=== PATIENT | female | born 1950 | race Caucasian/White ===

== ENCOUNTER 2016-10-06 13:00 | Inpatient (IN) | payer MEDICARE, OTHER ==
[~2016-10-06] VITALS: Ht 167.6 cm; Wt 74.8 kg
--- NOTE | 2016-11-02 14:02 | PREOPHP ---
DATE OF ADMISSION: 11/03/2016 The staff physician who is doing surgery is Estefania Cordero M.D. DATE OF ADMISSION: 11/03/2016, at [facility]. DICTATING PHYSICIAN: Dr. Josemanuel Lancaster. PATIENT IDENTIFICATION: This is a 66-year-old woman being admitted for an open sciatic neurolysis, trochanteric bursitis, abductor repair, left hip, by Dr. Cordero. HISTORY OF PRESENT ILLNESS: The patient had a left total hip replacement on 05/[address] Andrea Jackson at [facility] in [place]. She developed left hip pain postoperatively and this has persisted and has caused a fair amount of disability and difficulty walking. She has seen multiple doctors in order to arrive at a diagnosis and treatment, and after much consideration and seeing Dr. Cordero, has decided on the above-named procedure. The details of the workup for this and scan findings are outlined by Dr. Cordero, but essentially it is felt that she has an abductor tear that needs repair. REVIEW OF SYSTEMS: The patient had a significant febrile illness with cough in late August and actually ended up being hospitalized at [facility] from 09/17/2016 to 09/19/2016 and actually tested positive for influenza B. That caused postponement of this surgery initially and she has now recovered from this. She has also developed neck pain and saw her doctor,, who did an MRI and said she was okay to have this surgery. She denies chest pains, palpitations or shortness of breath, denies change in bowel habits or abdominal pain. Denies new urinary symptoms, although has frequent UTIs and had one on her preoperative exam and was given Macrobid. She occasionally has panic attacks and takes 1 mg of Xanax. PAST MEDICAL HISTORY: 1. Coronary artery disease, status post CABG in 2000. The patient sees Dr. Sergio Choudhary regularly. She had a Rubidium PET stress test in 04/2016, that was negative. Dr. Choudhary is aware that she is having this surgery and said she is okay to proceed. As noted above, she does not have angina or CHF. 2. Hypertension. 3. History of lupus, now quiescent. 4. History of JRA at age 8. 5. Gastroesophageal reflux disease. 6. Premature ventricular contractions. 7. Bronchiectasis. 8. Depression, treated. 9. Osteoporosis. 10. Hypothyroidism, treated. 11. History of recurrent UTIs. 12. Breast biopsy 05/2015. 13. Benign positional vertigo. 14. In January of 2016 the patient was found to have a left rib 9 fracture with associated T9 costovertebral junction fracture. This caused significant pain and actually she still has some pain from this. PAST SURGICAL HISTORY: Right shoulder surgery in July of 2015, and the patient continues to have problems with her right shoulder and may need a right shoulder replacement, gastric bypass surgery in 2011, right hip replacement in 2010, right knee replacement in 2009, left hip replacement 10/29/2015, vertebroplasty at L1 in 2007, breast reduction in 2006, left hand surgery for a fractured hook of hamate in 2006, laparoscopic band in 2005, right great toe fusion in 2005, ruptured posterior tibial tendon in 2003, removal of ovaries in 2000, CABG in 2000, cervical diskectomy and fusion at C5, C6 in 1998, left TMJ arthrotomy in 1992, cataract surgery in 2016. CURRENT MEDICATIONS: 1. [place] thyroid 60. 2. Amlodipine 10 mg. 3. Crestor 20 mg. 4. Cymbalta 20 mg every other day. 5. She is off her aspirin. ALLERGIES: SHE IS ALLERGIC TO: 1. PENICILLIN, 2. CIPRO. 3. SULFA. 4. LISINOPRIL CAUSED A COUGH. CIGARETTES: None. ALCOHOL: Three-quarters of a bottle of wine at night. FAMILY HISTORY: Negative for bleeding disorder or difficulty with anesthesia. PHYSICAL EXAMINATION: VITAL SIGNS: Weight 167, blood pressure 120/70, pulse 68, temperature 98.2. HEENT: Nonicteric. Mouth and throat clear. NECK: Supple. CHEST: Clear. CARDIOVASCULAR: Regular rate and rhythm. ABDOMEN: Soft, nontender. EXTREMITIES: No edema. NEUROLOGIC: Nonfocal. EKG 10/26/2016, sinus rhythm, nonspecific T-wave abnormality, no significant change from old tracings. Chest x-ray 09/02/2016, no active disease in the chest. LAB DATA: 10/26/2016: White count 9.6, hematocrit 46, platelet count 317,000, chemistry is normal including creatinine 0.77. PT, PTT normal. Urinalysis, 20 to 50 white cells. Urine culture is pending. ASSESSMENT AND PLAN: This is a 66-year-old woman being admitted for surgical repair of the left abductor muscle by Dr. Cordero. She had the following medical problems: 1. Coronary artery disease, status post coronary artery bypass graft in 2000. 2. Hypertension. 3. History of lupus, now quiescent. 4. History of juvenile rheumatoid arthritis at age 8. 5. Gastroesophageal reflux disease. 6. Premature ventricular contractions. 7. Bronchiectasis. 8. Depression, treated. 9. Osteoporosis. 10. Hypothyroidism, treated. 11. History of recurrent urinary tract infections. 12. Breast biopsy in May 2015. 13. Benign positional vertigo. 14. History of cervical spine surgery in 1998. 15. Status post left thoracic 9 costovertebral junction and rib fracture in 2015. I should have mentioned above that during her hospitalization at [facility] on 09/17/2016, the patient had a chest CT scan that showed no acute cardiopulmonary process, and while she has the history of bronchiectasis, this was not mentioned on the report on the chest CT scan. There was no acute cardiopulmonary process noted. RECOMMENDATIONS: 1. The patient is medically cleared for the planned procedure. 2. Xanax for postop anxiety. 3. I am not on staff at [facility], and please arrange for appropriate internal medicine coverage for the patient while she is in the hospital. Please do not hesitate to call me if there are any questions. My phone number is [phone]. 4. As mentioned above, the patient has asymptomatic bacteriuria and was placed on Macrobid on 10/27/2016 for 5 days and she also is being prescribed Keflex preoperatively by Dr. Cordero. JOSEMANUEL LANCASTER MD DICATING PRE-OPERATIVE HISTORY AND PHYSICIAL FOR ESTEFANIA MOSLEY MD. Dictated By: ESTEFANIA CORDERO MD CG/NTS Conf#: [id number] DID#: [id number] MTDD
[2016-11-03] VITALS (16 sets, daily range): BP systolic 120–151; BP diastolic 60–77; PULSE 50–66; RESP 13–20; Ht 167.6 cm; Wt 74.8 kg
--- NOTE | 2016-11-03 06:44 | HPN ---
Date/Time of Note Date/Time of Note DATE: 11/03/16 TIME: 06:44 Interval H&P Admission Note Pt. seen H&P reviewed: No system changes ESTEFANIA MABRY MD November 03, 2016 06:44
[2016-11-03] MEDS ORDERED: GLYCOPYRROLATE 1 MG INJ ONE (07:00)
[2016-11-03] MEDS ORDERED: LIDOCAINE 2% (SDV) 5 ML INJ ONE (07:00)
[2016-11-03] MEDS ORDERED: ROSU20TA PO (10:51)
[2016-11-03] MEDS ORDERED: THYR60TA PO (10:51)
[2016-11-03] MEDS ORDERED: AMLO-147 PO (10:52)
[2016-11-03] MEDS ORDERED: GABAPENTIN 300 MG CAP PO ONE (14:00)
[2016-11-03] MEDS ORDERED: CEFAZOLIN 2 GM/50 ML (PMX) 50 ML IVPB ONE (14:00)
[2016-11-03] MEDS ORDERED: traMADol 50 MG TAB PO ONE (14:00)
[2016-11-03] MEDS ORDERED: BUPIVACAINE 0.5% (SDV) 30 ML, morphine SULFATE (PF) 8 MG, EPINEPHrine 0.3 MG, KETOROLAC... IRR SCH ×7 (14:00)
[2016-11-03] MEDS ORDERED: DEXAMETHASONE 1 MG TAB PO ONE (14:00)
[2016-11-03] MEDS ORDERED: TRANEXAMIC ACID 1,000 MG in SOD CHLORIDE 0.9% 100 ML IVPB ONE (14:00)
[2016-11-03] MEDS ORDERED: VANCOMYCIN 1 GM in NS 250 ML IVPB SCH (14:00)
[2016-11-03] MEDS ORDERED: POLYMYXIN/BACITRACIN 1L IRRIG ONE (14:16)
[2016-11-03] MEDS ORDERED: THROMBIN 5000 UNIT VIAL ONE (14:17)
[2016-11-03] MEDS ORDERED: CA CHLORIDE 10% 10 ML SYRINGE ONE ×2 (14:21→14:22)
[2016-11-03] MEDS ORDERED: PROPOFOL 20 ML ONE (14:31)
[2016-11-03] MEDS ORDERED: MIDAZOLAM 1 MG/ML 2 ML INJ ONE (14:31)
[2016-11-03] MEDS ORDERED: ONDANSETRON 4 MG INJ ONE (14:31)
[2016-11-03] MEDS ORDERED: FENTAnyl 50 MCG/ML VIAL ONE ×2 (14:31→14:56)
[2016-11-03] MEDS ORDERED: CEFAZOLIN 1 GM INJ ONE (14:31)
[2016-11-03] MEDS ORDERED: DEXAMETHASONE 4 MG/ML 1 ML INJ ONE (14:31)
[2016-11-03] MEDS ORDERED: ROCURONIUM 50 MG INJ ONE (14:31)
[2016-11-03] MEDS ORDERED: NEOSTIGMINE 3 MG/3 ML SYRINGE ONE (14:31)
[2016-11-03] MEDS ORDERED: ONDANSETRON 4 MG INJ IV PRN ×2 (15:30→16:00)
[2016-11-03] MEDS ORDERED: DIPHENHYDRAMINE 50 MG INJ IV PRN ×2 (15:30→16:00)
[2016-11-03] MEDS ORDERED: TRIMETHOBENZAMIDE 100 MG/ML VIAL IM PRN (15:30)
[2016-11-03] MEDS ORDERED: MEPERIDINE 25 MG INJ IV PRN (15:30)
[2016-11-03] MEDS ORDERED: HYDROmorphONE (0.2 MG/ML) 10ML SYG IV PRN ×3 (15:30)
[2016-11-03] MEDS ORDERED: MIDAZOLAM 1 MG/ML 2 ML INJ IV PRN (15:30)
[2016-11-03] MEDS ORDERED: LABETALOL HCL 20MG INJ IV PRN (15:30)
[2016-11-03] MEDS ORDERED: hydrALAzine 20 MG INJ IV PRN (15:30)
[2016-11-03] MEDS ORDERED: FENTAnyl 50 MCG/ML VIAL IV PRN ×3 (15:30)
--- NOTE | 2016-11-03 15:54 | OPR ---
DATE OF OPERATION: 11/03/2016 SURGEON: Estefania Cordero MD SPRINKLING SYSTEM IRRIGATOR: KONRAD VILA PA-C. PREOPERATIVE DIAGNOSIS: Left abductor tendon tear. POSTOPERATIVE DIAGNOSES 1. Left abductor tendon tear. 2. Left chronic trochanteric bursitis. OPERATION PERFORMED 1. Left open abductor repair. 2. Left open trochanteric bursectomy. Application Trainer surgeon, Konrad Boswell was present at my request as a result of the complexity associated with this procedure, including positioning of the extremity, manipulation and protection of the neurovascular structures. In my opinion, the assistance offered by a surgical manager is insufficient and Mr. Boswell should be compensated for his time. PROCEDURE IN DETAIL: Following administration of general endotracheal anesthesia, the patient was placed in the right lateral decubitus position and the left lower extremity was then prepped and draped in usual sterile fashion. A lateral incision was made over the palpable prominence of the greater trochanter. The incision was carried through the IT band and the IT band was incised. Severe bursal reactive tissue was then noted. A complete bursectomy was then performed. The abductor tendon was then incised and the undersurface was completely detached. This included the gluteus medius as well as the minimus. The area was then decorticated and debrided down to bleeding cortical cancellous base. The devitalized tissue was then debrided. Two 5.5 mm triple loaded anchors were then placed into the trochanter. These were all used for passing the sutures through the abductor disruption. Sutures were tied. A watertight closure of the abductor was then completed. The sciatic nerve was identified and noted to have no scarring or impingement. The joint was irrigated, closed in layers. A Prenio dressing was then applied. The patient was then placed supine, extubated, awakened and transported to recovery in stable condition, having tolerated the procedure well. ESTIMATED BLOOD LOSS: 20 mL. Dictated By: ESTEFANIA MEDLEY/JUVENAL Conf#: [id number] DID#: [id number] MTDD
[2016-11-03] MEDS ORDERED: TRANEXAMIC ACID 1,000 MG in SOD CHLORIDE 0.9% 100 ML IV ONE (16:00)
[2016-11-03] MEDS ORDERED: ACETAMINOPHEN/CODEINE 5 ML CUP PO PRN (16:00)
[2016-11-03] MEDS ORDERED: KETOROLAC 15 MG INJ IV PRN (16:00)
[2016-11-03] MEDS ORDERED: OXYCODONE/ACETAMINOPHEN (5/325) TAB PO PRN ×2 (16:00)
[2016-11-03] MEDS ORDERED: ZOLPIDEM 5 MG TAB PO PRN (16:00)
[2016-11-03] MEDS ORDERED: MAGNESIUM HYDROXIDE 30ML CUP PO PRN (16:00)
[2016-11-03] MEDS ORDERED: ACETAMINOPHEN 500 MG TAB PO PRN (16:00)
[2016-11-03] MEDS: morphine 2 MG INJ IV PRN ×2 (18:30→21:42)
[2016-11-03] MEDS: CEFAZOLIN 1 GM/50 ML (PMX) 50 ML IVPB SCH (18:30)
[2016-11-03] MEDS: LACTATED RINGER'S 1,000 ML IV SCH (18:44)
[2016-11-03] MEDS ORDERED: ATORVASTATIN 80 MG TAB PO SCH (21:00)
[2016-11-03] MEDS: SENNA/DOCUSATE NA (8.6MG/50MG) TAB PO SCH (21:00)
[2016-11-04] MEDS: CEFAZOLIN 1 GM/50 ML (PMX) 50 ML IVPB SCH ×2 (00:43→08:00)
[2016-11-04] MEDS: LACTATED RINGER'S 1,000 ML IV SCH ×2 (00:51→11:35)
[2016-11-04 00:59] VITALS: BP 156/74; PULSE 53; RESP 17
[2016-11-04] MEDS: morphine 4 MG/ML VIAL IV PRN ×2 (03:50→07:46)
[2016-11-04 04:01] VITALS: BP 151/71; PULSE 50; RESP 17
[2016-11-04 04:45] VITALS: BP 139/65; PULSE 54; RESP 17
[2016-11-04 08:20] VITALS: BP 131/63; RESP 18
--- NOTE | 2016-11-04 08:37 | PN ---
Date/Time of Note Date/Time of Note DATE: 11/04/16 TIME: 08:29 Assessment/Plan VTE Prophylaxis VTE Prophylaxis Intervention: ambulation Lines/Catheters IV Catheter Type (from Nrsg): Peripheral IV Central line still needed: No Urinary Cath still in place: No Assessment/Plan Chief Complaint/Hosp Course Left hip abductor repair, open neurolysis, troch bursectomy 11/03/16 Problems: Assessment/Plan POD 1, pain well controlled, but did have bradycardia overnight 1. Bradycardia-consult internal medicine 2. Foot flat weightbearing LLE, no twisting 3. Pain control on oral pain medication 4. PT/OT 5. Home when bradycardia resolves and cleared by medicine. Subjective 24 Hr Interval Summary Free Text/Dictation Bradycardic overnight, but asymptomatic. No lightheadedness, or dizziness. No CP/SOB. Pain is well controlled. Constitutional: no complaints Respiratory: no complaints Cardiovascular: no complaints Exam/Review of Systems Vital Signs Vitals Vital Signs Date Time Temp Pulse Resp B/P Pulse Ox O2 Delivery O2 Flow Rate FiO2 11/04/16 08:20 97.8 44 18 131/63 100 11/04/16 04:45 Nasal Cannula Intake and Output 11/03/16 11/03/16 11/04/16 15:00 23:00 07:00 Intake Total 1100 ml 1640 ml Output Total 16 ml 800 ml Balance 1084 ml 840 ml Exam LLE: incision clean and dry toes warm and well perfused has full sensation in the lower extremity able to dorsiflex and plantarflex with full strength Constitutional: alert, oriented Psych: no complaints Respiratory: normal air movement Cardiovascular: other (bradycardic in the 40s) Medications Medications Current Medications Amlodipine Besylate (Norvasc) 10 mg DAILY PO ; Start 11/04/16 at 09:00 Thyroid ([place] Thyroid) 60 mg DAILY PO ; Start 11/04/16 at 09:00 Atorvastatin Calcium 80 mg 80 mg DAILY@21 PO ; Start 11/03/16 at 21:00 Cefazolin Sodium (Ancef 1 Gm/50 ml (Pmx)) 50 ml @ 100 mls/hr Q8H IVPB Last administered on 11/04/16t 00:43; Admin Dose 100 MLS/HR; Start 11/03/16 at 16:00 ; Stop 11/04/16 at 08:29 Senna/Docusate Sodium (Senokot-S) 1 tab BID PO ; Start 11/03/16 at 21:00 Simethicone (Mylicon) 80 mg TID PRN PO DISTENSION/GAS/BLOATING; Start 11/03/16 at 16:00 Magnesium Hydroxide (Milk Of Mag) 30 ml BID PRN PO CONSTIPATION; Start at 16:00 Acetaminophen (Tylenol Tab) 1,000 mg Q4H PRN PO TEMP GREATER THAN 100.4F; Start 11/03/16 at 16:00 Oxycodone/ Acetaminophen (Percocet (5/ 325)) 1 tab Q4H PRN PO PAIN LEVEL 1-5; Start 11/03/16 at 16:00 Oxycodone/ Acetaminophen (Percocet (5/ 325)) 2 tab Q4H PRN PO PAIN LEVEL 6-10; Start 11/03/16 at 16:00 Morphine Sulfate (morphine) 2 mg Q2H PRN IV PAIN LEVEL 1-5 Last administered on 11/03/16 21:42; Admin Dose 2 MG; Start 11/03/16 at 16:00 Morphine Sulfate (morphine) 4 mg Q4H PRN IV PAIN LEVEL 6-10 Last administered on 11/04/16 07:46; Admin Dose 4 MG; Start 11/03/16 at 16:00 Ketorolac Tromethamine (Toradol) 15 mg Q6H PRN IV PAIN; Start 11/03/16 at 16:00 ; Stop 11/06/16 at 15:59 Ondansetron HCl (Zofran Inj) 4 mg Q6H PRN IV NAUSEA AND/OR VOMITING; Start at 16:00 Diphenhydramine HCl (Benadryl) 25 mg Q6H PRN IV PRURITUS; Start 11/03/16 at 16: 00 Aspirin 81 mg 81 mg DAILY PO ; Start 11/04/16 at 09:00 Lactated Ringer's (Lr) 1,000 ml @ 100 mls/hr Q10H IV Last administered on 11/04 00:51; Admin Dose 100 MLS/HR; Start 11/03/16 at 15:35 Acetaminophen/ Codeine Phosphate (Tylenol/Codeine Liquid) 5 ml Q4H PRN PO PAIN ; Start 5/18/17 at 16:00 OUMAR CHAUHAN MD November 04, 2016 08:37
[2016-11-04] MEDS ORDERED: AMLODIPINE 10 MG TAB PO SCH (09:00)
[2016-11-04] MEDS ORDERED: THYROID 60 MG TAB PO SCH (09:00)
[2016-11-04] MEDS ORDERED: ASPIRIN 81 MG TAB PO SCH (09:00)
[2016-11-04] MEDS: SENNA/DOCUSATE NA (8.6MG/50MG) TAB PO SCH (09:13)
--- NOTE | 2016-11-04 16:45 | CONS ---
Date/Time of Note Date/Time of Note DATE: 11/04/16 TIME: 16:34 Assessment/Plan Assessment/Plan Problems: (1) Coronary artery disease Status: Chronic Comment: Quiescent and inactive. I do not believe that her bradycardia dysrhythmia is due to this as the patient reports a history of a slow pulse. At this time she is not in need of cardiac intervention Qualifiers: Qualified Code: I25.810 - Coronary artery disease involving coronary bypass graft of [place] heart without angina pectoris (2) Status post aorto-coronary artery bypass graft Status: Chronic Comment: This occurred in 2000 and is stable (3) PVCs (premature ventricular contractions) Status: Chronic Comment: Historical feature noted. (4) Bradycardia Status: Chronic Comment: Patient's pulses been in the 40s-50s. The patient reports a history of this and is not on any negative inotropic agents. She has a ditching machine operating engineer who will address this. At this time she does not need intervention is stable to go home (5) Hypothyroidism (acquired) Status: Chronic Comment: She is biochemically euthyroid on replacement therapy (6) Essential hypertension Status: Chronic Comment: Well-controlled using amlodipine (7) Osteoporosis Status: Chronic Comment: She would be a candidate for Forteo her primary care player manager will address this (8) Hyperlipidemia Comment: On treatment with statin Qualifiers: Qualified Code: E78.00 - Pure hypercholesterolemia Consultation Date/Type/Reason Admit Date/Time November 03, 2016 at 09:55 Date of Consultation: November 04, 2016 Type of Consultation: Internal medicine Reason for Consultation Postoperative management; bradycardia dysrhythmia; hypertension; hypothyroidism ; gastroesophageal reflux disease; organic heart diseasecoronary artery diseasestatus post CABG 2000; SLE; history of juvenile rheumatoid arthritis age 8; history of PVCs; dysthymia; osteoporosis; benign positional vertigo; history of bronchiectasis Referring Provider: ESTEFANIA MABRY MD Hx of Present Illness Charming 66-year-old female admitted electively for repair of the left leg adductor tear. She was cleared by her primary care player manager and ditching machine operating engineer in [place]. She had surgery yesterday. Today she has had some bradycardia without hypotension or symptomatology. Constitutional: no complaints Respiratory: no complaints Cardiovascular: no complaints Gastrointestinal: no complaints Genitourinary: no complaints Psychological: no complaints Past Medical History Osteoporosis; SLE; history of juvenile rheumatoid arthritis age 8; gastroesophageal reflux disease; organic heart diseasecoronary artery disease; PVCs; bradycardia dysrhythmias;status post CABG dysthymia; hypothyroidism with normal thyroid function tests in the recent past; BPV Medical History: coronary artery disease, hypothyroid Past Surgical History Status post right shoulder surgery; status post gastric bypass in 2011; status post right hip replacement 2010; status post right knee replacement; status post left hip replacement; status post L1 vertebroplasty; status post breast reduction 2006; status post repair of the hamate bone in the left hand in 2006; status post fusion of the right great toe 2005; history of ruptured posterior tibial tendon 2003; status post oophorectomy 2000; status post cervical spine fusion with discectomy at C5-6 in 1998; status post TMJ arthrotomy; status post cataract extraction Family History Significant Family History: no pertinent family hx Social History Alcohol Use: other (Three quarters of bottle of wine every night) Smoking Status: Never smoker Drug Use: none Other Social History Born in [facility] raised in the [place] lives with her she has 1 son who lives in [place] and one daughter lives in [facility] who she babysits the daughters 2 daughters and granddaughters Exam/Review of Systems Vital Signs Vitals Vital Signs Date Time Temp Pulse Resp B/P Pulse Ox O2 Delivery O2 Flow Rate FiO2 11/04/16 08:20 97.8 44 18 131/63 100 11/04/16 04:45 Nasal Cannula Intake and Output 11/03/16 11/03/16 11/04/16 15:00 23:00 07:00 Intake Total 1100 ml 1640 ml Output Total 16 ml 800 ml Balance 1084 ml 840 ml Exam Constitutional: alert, oriented Neck: non-tender, supple Respiratory: clear to auscultation, normal air movement Cardiovascular: nl pulses, regular rate and rhythm Gastrointestinal: nl liver, spleen, non-tender, soft Neurological: POLYSOMNOGRAPHIC TECHNOLOGIST II-XII intact, nl mental status Medications Medications Current Medications Amlodipine Besylate (Norvasc) 10 mg DAILY PO ; Start 11/04/16 at 09:00 Thyroid ([place] Thyroid) 60 mg DAILY PO Last administered on 11/04/16t 09:12; Admin Dose 60 MG; Start 11/04/16 at 09:00 Atorvastatin Calcium (Lipitor) 80 mg DAILY@21 PO ; Start 11/03/16 at 21:00 Senna/Docusate Sodium (Senokot-S) 1 tab BID PO Last administered on 11/04/16 09:13; Admin Dose 1 TAB; Start 11/03/16 at 21:00 Simethicone (Mylicon) 80 mg TID PRN PO DISTENSION/GAS/BLOATING; Start 11/03/16 at 16:00 Magnesium Hydroxide (Milk Of Mag) 30 ml BID PRN PO CONSTIPATION; Start at 16:00 Acetaminophen (Tylenol Tab) 1,000 mg Q4H PRN PO TEMP GREATER THAN 100.4F; Start 11/03/16 at 16:00 Oxycodone/ Acetaminophen (Percocet (5/ 325)) 1 tab Q4H PRN PO PAIN LEVEL 1-5; Start 11/03/16 at 16:00 Oxycodone/ Acetaminophen (Percocet (5/ 325)) 2 tab Q4H PRN PO PAIN LEVEL 6-10; Start 11/03/16 at 16:00 Morphine Sulfate (morphine) 2 mg Q2H PRN IV PAIN LEVEL 1-5 Last administered on 11/03/16 21:42; Admin Dose 2 MG; Start 11/03/16 at 16:00 Morphine Sulfate (morphine) 4 mg Q4H PRN IV PAIN LEVEL 6-10 Last administered on 11/04/16 07:46; Admin Dose 4 MG; Start 11/03/16 at 16:00 Ketorolac Tromethamine (Toradol) 15 mg Q6H PRN IV PAIN; Start 11/03/16 at 16:00 ; Stop 11/06/16 at 15:59 Ondansetron HCl (Zofran Inj) 4 mg Q6H PRN IV NAUSEA AND/OR VOMITING; Start at 16:00 Diphenhydramine HCl (Benadryl) 25 mg Q6H PRN IV PRURITUS; Start 11/03/16 at 16: 00 Aspirin 81 mg 81 mg DAILY PO Last administered on 11/04/16 09:12; Admin Dose 81 MG; Start 11/04/16 at 09:00 Lactated Ringer's (Lr) 1,000 ml @ 100 mls/hr Q10H IV Last administered on 11/04 00:51; Admin Dose 100 MLS/HR; Start 11/03/16 at 15:35 Acetaminophen/ Codeine Phosphate (Tylenol/Codeine Liquid) 5 ml Q4H PRN PO PAIN ; Start 11/03/16 at 16:00 WARREN CANNON MD November 04, 2016 16:45
--- NOTE | 2016-11-06 12:43 | DS ---
Date/Time of Note Date/Time of Note DATE: 11/06/16 TIME: 12:42 Discharge Summary Admission/Discharge Info Admit Date/Time November 03, 2016 at 09:55 Discharge Date/Time November 04, 2016 at 16:50 Final Diagnosis Abductor tendon tear Patient Condition: Good Hospital Course Ja 66-year-old female admitted electively for repair of the left leg adductor tear. She was cleared by her primary care screen printing paster and oil program compliance specialist in [place]. She had surgery yesterday. Today she has had some bradycardia without hypotension or symptomatology. Underwent surgery, mild bradycardia. Home AM next day with no problems. Home Meds Reported Medications Amlodipine Besylate* (Amlodipine Besylate*) 10 Mg Tablet, 10 MG PO DAILY, #30 TAB 11/03/16 Thyroid* ([place] Thyroid*) 60 Mg Tablet, 60 MG PO DAILY, TAB 11/03/16 Rosuvastatin Calcium* (Crestor*) 20 Mg Tablet, 20 MG PO QHS, #30 TAB 11/03/16 Follow-up Plan Two weeks Primary Care Provider Not On Staff Doctor ESTEFANIA MABRY MD November 06, 2016 12:43
== END 2016-11-04 16:50 | disposition home health service (06) | DRG 502 ==
LOC: EDSTATUS 13:00 → REC 11-03 09:55 → MS1 11-03 17:25
PROVIDERS: ADMIT Orthopaedic Surgery; ATTEND Orthopaedic Surgery
PROC: 0MTM0ZZ Resection of Left Hip Bursa and Ligament, Open Approach (ICD-10-PCS; 2016-11-03)
PROC: 0LMK0ZZ Reattachment of Left Hip Tendon, Open Approach (ICD-10-PCS; principal; 2016-11-03 14:00)
DX: S76.012A Strain of muscle, fascia and tendon of left hip, initial encounter (principal); I10 Essential (primary) hypertension; Z95.1 Presence of aortocoronary bypass graft; M08.00 Unspecified juvenile rheumatoid arthritis of unspecified site; K21.9 Gastro-esophageal reflux disease without esophagitis; E03.9 Hypothyroidism, unspecified; M70.62 Trochanteric bursitis, left hip; R00.1 Bradycardia, unspecified; M81.0 Age-related osteoporosis without current pathological fracture; Z96.643 Presence of artificial hip joint, bilateral
CPT/HCPCS: 86999; 97116; 97162; 97530; J0171; J0690; J0735; J1100; J1885; J2175; J2250; J2270; J2274; J2405; J2710; J3010; J3370; J7120

== ENCOUNTER 2018-10-04 07:30 | Inpatient (IN) | payer MEDICARE, OTHER ==
--- NOTE | 2018-09-28 07:21 | PREOPHP ---
DATE OF ADMISSION: 10/04/2018 DATE OF SURGERY: 10/04/2018. PATIENT IDENTIFICATION: This is a 68-year-old woman being admitted for shoulder surgery by Dr. Mosley he. A reverse shoulder replacement. HISTORY OF PRESENT ILLNESS: The patient's orthopedic history is well outlined by Dr. Cordero. She i s being admitted for the above named procedure. REVIEW OF SYSTEMS: The patient has had right hand surgery on 09/12/[address] Small. She also has a fractured right hamate bone. She had a URI with fever a few weeks ago, this has resolved. She roland es chest pains, palpitations or shortness of breath. She has chronic diarrhea which is being followe d. She had a UTI with E. coli on her urine sample from 09/18/2018. This is treated with Keflex. Th e patient also has chronic trouble swallowing and sometimes difficulty getting pills down and sometim es needing liquid medications. She had upper endoscopy in April 2018. She was going to have a sw allow study, but this has not been done. PAST MEDICAL HISTORY: 1. Coronary artery disease status post CABG in 2000. The patient saw her industrial accountant, Dr. Sergio mckoy on 09/25/2018. She had a rubidium PET stress test in April of 2016, which was negative. She does not have angina or congestive heart failure. 2. Hypertension. 3. History of lupus, now quiescent. 4. History of JRA at age 8. 5. Gastroesophageal reflux disease. 6. Premature ventricular contractions. 7. Bronchiectasis. 8. Depression, treated. 9. Osteoporosis, treated. 10. Hypothyroidism, treated. 11. History of recurrent UTIs. 12. Breast biopsy in 2014. 13. Benign positional vertigo. 14. In January of 2016, the patient was found to have a left ninth rib fracture with associated T9 co stovertebral junction fracture. PAST SURGICAL HISTORY: 1. Left hip abductor repair by Dr. Cordero 11/03/2016. 2. Right shoulder surgery July 2015. 3. Gastric bypass surgery in 2011. 4. Right hip replacement in 2010. 5. Left hip replacement in 2015. 6. Right knee replacement in 2009. 7. Vertebroplasty at L1 in 2007. 8. Breast reduction in 2006. 9. Left hand surgery for fractured hook of the hamate in 2006. 10. Lap band in 2005. 11. Right great toe fusion in 2005. 12. Right posterior tibial tendon in 2003. 13. Removal of ovaries in 2000. 14. CABG in 2000. 15. Cervical diskectomy and fusion at C5-C6 in 1998. 16. Left TMJ arthrotomy in 1992. 17. Cataract surgery 2016. 18. C6-C7 posterior decompression and fusion 02/12/2017. 19. Right hand surgery which was open reduction and surgical fixation of the right fifth metacarpal 09/12/2018. MEDICATIONS: 1. Cymbalta 40 mg daily. 2. Crestor 20 mg daily. 3. Edarbyclor 40 mg daily. 4. Synthroid 100 daily. 5. Vitamin D 5000. 6. Prolia shots every 6 months. 7. B12 injections. ALLERGIES: 1. PENICILLIN. 2. CIPRO. 3. SULFA. 4. LISINOPRIL, WHICH CAUSES A COUGH. SOCIAL HISTORY: Cigarettes: None. Alcohol: Two to 3 glasses of wine per night. FAMILY HISTORY: Negative for bleeding disorders or difficulty with anesthesia. PHYSICAL EXAMINATION: GENERAL: Well-developed, well-nourished. Weight 163, blood pressure 160/90, repeat 140/80, pulse 72 , temperature 98.2. HEENT: Nonicteric. Mouth and throat clear. NECK: Supple. CHEST: Clear. CARDIOVASCULAR: Regular rate and rhythm. ABDOMEN: Soft, nontender. PELVIC AND RECTAL: Not examined. EXTREMITIES: No edema. Peripheral pulses 2+. NEUROLOGIC: Nonfocal. LABORATORY DATA: EKG 09/03/2018: Normal sinus rhythm, incomplete right bundle branch block, nonspec ific ST-T abnormality, no significant change from 10/26/2016. Chest x-ray 09/03/2018: No active dis ease in the chest. Lab data 09/18/2018: White count 4.6, hematocrit 41.6, platelet count 486,000. Chemistry panel normal including creatinine 0.56. PT, PTT normal. Urine culture showed greater than 100,000 E. coli, sensitive to everything. ASSESSMENT AND PLAN: This is a 68-year-old woman being admitted for reverse shoulder replacement by Dr. Cordero. She has the following medical problems: 1. Coronary artery disease status post coronary artery bypass graft in 2000. 2. Hypertension. 3. History of lupus, now quiescent. 4. 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 5. Gastroesophageal reflux disease. 6. Premature ventricular contractions. 7. History of bronchiectasis, although not mentioned on the chest CT report at [facility] 09/17/2016 or on a chest CT from [facility] 02/22/2018. 8. Depression, treated. 9. Osteoporosis. 10. Hypothyroidism, treated 11. History of recurrent urinary tract infections. 12. Breast biopsy in 2014. 13. Benign positional vertigo. 14. History of cervical spine surgery in 1998 and 2016. 15. Status post fracture of the left rib and thoracic costovertebral junction in January of 2016. 16. E. coli UTI treated with Keflex. RECOMMENDATIONS: The patient is medically cleared for the planned procedure. I am not on staff at [facility]. Please arrange for hospitalist if the patient stays in the hospital. Ruiz velasquez call me if I can be of assistance. My phone number is [phone], Dr. Josemanuel Lancaster. Also, note that I did give the patient a prescription for oxycodone liquid at her request on 09/19/[address] JOSEMANUEL LANCASTER DICATING PRE-OP HISTORY AND PHYSICAL FOR DR. ESTEFANIA CORDERO. Dictated By: ESTEFANIA CORDERO MD CG/NTS Conf#: [id number] DID#: [id number] CC: Josemanuel Lancaster; ESTEFANIA CORDERO MD;*[facility]*
[2018-10-04] VITALS (24 sets, daily range): BP systolic 120–165; BP diastolic 62–90; PULSE 53–101; RESP 12–20; Ht 167.6 cm; Wt 76.7 kg
[~2018-10-04] VITALS: Ht 167.6 cm; Wt 76.7 kg
--- NOTE | 2018-10-04 05:56 | HPN ---
Date/Time of Note Date/Time of Note DATE: 10/04/18 TIME: 05:55 Interval H&P Admission Note Pt. seen H&P reviewed: No system changes ESTEFANIA MABRY MD Oct 04, 2018 05:56
--- NOTE | 2018-10-04 05:58 | OPR ---
Date/Time of Note Date/Time of Note DATE: 10/04/18 TIME: 05:56 Operative Report Procedure Date: Oct 04, 2018 Preoperative Diagnosis Right shoulder rotator cuff tear arthropathy Postoperative Diagnosis 1. Right shoulder glenohumeral arthritis 2. Right shoulder acromioclavicular joint arthritis 3. Right shoulder massive, unrepairable rotator cuff tear Operation/Procedure Performed 1. Right shoulder reverse total shoulder replacement 2. Right open distal clavicular excision 3. Right shoulder injection of PRP solution Surgeon see signature line Roll Table Operator Jacob Lugo DO Anesthesia Type: general Estimated Blood Loss: 50 - 100 ml's Transfusion none Specimen None Grafts/Implants none Complications none Pt Condition Post Procedure: stable Disposition: PACU Procedure Description FARMWORKERS SURGEON: Jacob Lugo DO was asked to be present for this case at my request. Assistance was necessary as a result of the highly technical nature of this operation. When performing an open total shoulder replacement, it is critical to have a trained assistant head cashier who is an expert in handling the extremity and assisting the surgeon in tasks such as manipulation of the arm, protection of the neurovascular structures and positioning the implants. This assistance cannot be performed by a explosive ordnance disposal technician, as it is considered an integral part of the procedure and the assistant head cashier should be compensated for his time. PROCEDURE IN DETAIL: Following the administration of general anesthesia supplemented with a peripheral nerve block for postoperative pain control, the patient was examined under anesthesia. This revealed severe stiffness and significant glenohumeral as well as subacromial crepitus. The antecubital fossa was then prepped and 60 cc of blood were aspirated. The blood was then subsequently given to the sales representative publications from the company to prepare the PRP solution. Examination of the left shoulder revealed very significant stiffness including a forward flexion of about 90 degrees abduction 75 degrees maximal external rotation 65 degrees with severe crepitus. There was anteroposterior escape of the humeral head, also. The patient was then placed in the beach chair position. Sterile prep and drape was then undertaken. An extended deltopectoral incision was then carried through the interval exposing the conjoined tendon and retracting it medially. The superior aspect of the joint was then evaluated. Significant osteophytes were noted in the acromioclavicular joint. The acromioclavicular joint capsule was then entered and the distal clavicle skeletonized for a distance of 10 mm. Severe arthritic changes were noted. An osteotome was then used to resect 10 mm of the distal clavicle. Good decompression was confirmed. The AC joint was irrigated and closed using a #2 interrupted suture. The subscapularis was noted to be partially disrupted superiorly. Severe arthritic changes were noted with very large peripheral osteophytes. The superior rotator cuff was torn and retracted. The biceps tendon was chronicall y torn and retracted. The intra-articular portion was resected. A humeral head osteotomy was then created in the appropriate degree of version and inclination. The humerus was retracted and the glenoid was exposed. Peripheral osteophytes were removed and a complete capsulectomy performed. The central canal of the glenoid was then entered and prepared for a standard Depuy baseplate. A standard Depuy baseplate was then applied with four peripheral screws and solid fixation. A 38 mm glenosphere was then applied, with solid fixation. The humerus was then reamed and prepared for a 12 mm humeral component with a standard metaphyseal component with a 6 mm liner. The humeral canal was irrigated and the PRP solution was implanted within the humeral canal. The actual components were implanted with solid fixation. The arm was taken through full range of motion with no evident instability. The joint was then thoroughly irrigated, the deep tissues were approximated using #1 suture followed by closure of the deep layer using 2-0 Monocryl. The skin was closed using 4-0 Monocryl suture, and a Prenio dressing. An Ultrasling was then applied. The patient was awakened and transported to the recovery room in stable condition. Estimated blood loss for this procedure was 150 cc. Radiographs will be obtained in the recovery room. ESTEFANIA MABRY MD Oct 04, 2018 05:58
[~2018-10-04 07:30] MED LIST: AMLO-147 PO; BUPIVACAINE 0.5% (SDV) 30 ML, morphine SULFATE (PF) 8 MG, EPINEPHrine 0.3 MG, KETOROLAC... IRR SCH; CRES20 PO; DEXAMETHASONE 1 MG TAB PO ONE; GABAPENTIN 300 MG CAP PO ONE; THYR60TA PO; VANCOMYCIN 1 GM (PMX) 250 ML IVPB ONE
[2018-10-04] MEDS ORDERED: SEVOFLURANE 15 MIN ONE (10:00)
[2018-10-04] MEDS ORDERED: TRANEXAMIC ACID 1 GM/100 ML (PMX) ONE (10:00)
[2018-10-04] MEDS: TRANEXAMIC ACID 1GM/100ML(PMX) 100 ML IVPB ONE ×3 (10:02→13:00)
--- NOTE | 2018-10-04 10:07 | PREAC ---
Date/Time of Note Date/Time of Note DATE: 10/04/18 TIME: 10:04 Anesthesia Eval and Record Evaluation Time Pre-Procedure Interview DATE: 10/04/18 TIME: 10:04 Age 68 Sex female NPO: 8 hrs Preoperative diagnosis Right Shoulder Arthropathy Planned procedure Right Total Shoulder Replacement Past Medical History Past Medical History: Includes Cardio: HTN, Dyslipidemia, CAD, Arrythmia Endo: Hypothyroid Musculoskeletal: Osteoarthritis Surgery & Anesthesia Issues No known issue Meds Anticoagulation: No Beta Darrius within 24 hr: No Reason Beta Darrius not given: Pt. not on B-Darrius Discontinued Reported Medications Amlodipine Besylate* (Amlodipine Besylate*) 10 Mg Tablet, 10 MG PO DAILY, #30 TAB 11/03/16 Thyroid* ([place] Thyroid*) 60 Mg Tablet, 60 MG PO DAILY, TAB 11/03/16 Rosuvastatin Calcium* (Crestor*) 20 Mg Tablet, 20 MG PO QHS, #30 TAB 11/03/16 Current Medications Bupivacaine HCl/ Morphine Sulfate/ Epinephrine/ Ketorolac Tromethamine/ Clonidine/Sodium Chloride/ Vancomycin HCl INTRA-OP IRR ; Start 10/04/18 at 06:00 Lactated Ringer's 1,000 ml @ 30 mls/hr Q24H IV ; Start 10/04/18 at 10:00 Meds reviewed: Yes Allergies Coded Allergies: Sulfa (Sulfonamide Antibiotics) (Verified Allergy, Severe, 10/04/18) ciprofloxacin (Verified Allergy, Severe, 10/04/18) Penicillins (Verified Allergy, Unknown, 10/04/18) pseudoephedrine (Verified Allergy, Unknown, 10/04/18) Allergies Reviewed: Yes Labs/Studies Labs Reviewed: Reviewed by anesthesiologist test: N/A Studies: ECG (refer to chart), CXR (n/a) Pre-procedure Exam Airway: Adequate mouth opening, Adequate thyromental dist Mallampati: Mallampati II Teeth: Normal Lung: Normal Heart: Normal ASA Physical Status ASA physical status: 3 Emergency: None Planned Anesthetic General/MAC: ETT Nerve block: Brachial plexus (right) Planned Pain Management Single shot nerve block, Parenteral pain med Pre-operative Attestations Prior to commencing anesthesia and surgery, the patient was re-evaluated, there was verification of: *The patient's identity *The results of appropriate recent lab work and preoperative vital signs *The above evaluation not changing prior to induction *Anesthetic plan, risk benefits, alternative and complications discussed with patient/family; questions answered; patient/family understands, accepts and wishes to proceed. MARIBELL MORENO MD Oct 04, 2018 10:07
[2018-10-04] MEDS ORDERED: ROCURONIUM 50 MG INJ ONE (10:10)
[2018-10-04] MEDS ORDERED: ETOMIDATE 20 MG INJ ONE (10:10)
[2018-10-04] MEDS ORDERED: MIDAZOLAM 1 MG/ML 2 ML INJ ONE (10:10)
[2018-10-04] MEDS ORDERED: ROPIVACAINE 0.5 % 30 ML VIAL ONE (10:10)
[2018-10-04] MEDS ORDERED: FENTAnyl 50 MCG/ML VIAL ONE (10:10)
[2018-10-04] MEDS: LACTATED RINGER'S 1,000 ML IV SCH ×2 (10:12→18:02)
[2018-10-04] MEDS ORDERED: METOCLOPRAMIDE 10 MG INJ IV PRN (10:30)
[2018-10-04] MEDS ORDERED: DIPHENHYDRAMINE 50 MG INJ IV PRN ×2 (10:30→13:00)
[2018-10-04] MEDS ORDERED: MEPERIDINE 25 MG INJ IV PRN (10:30)
[2018-10-04] MEDS ORDERED: EPHEDrine SULFATE 50 MG/5 ML SYG IV PRN (10:30)
[2018-10-04] MEDS ORDERED: ALBUMIN HUMAN 5% 250 ML IV PRN (10:30)
[2018-10-04] MEDS ORDERED: HYDROmorphONE 1 MG/5 ML IV SYRINGE IV PRN ×3 (10:30)
[2018-10-04] MEDS ORDERED: OXYCODONE/ACETAMINOPHEN (5/325) TAB PO PRN (10:30)
[2018-10-04] MEDS ORDERED: FENTAnyl 50 MCG/ML VIAL IV PRN ×3 (10:30)
[2018-10-04] MEDS ORDERED: hydrALAzine 20 MG INJ IV PRN (10:30)
[2018-10-04] MEDS ORDERED: ONDANSETRON 4 MG INJ IV PRN ×2 (10:30→13:00)
[2018-10-04] MEDS ORDERED: LABETALOL HCL 20MG INJ IV PRN (11:00)
[2018-10-04] MEDS ORDERED: CA CHLORIDE 10% 10 ML SYRINGE ONE (11:09)
[2018-10-04] MEDS ORDERED: THROMBIN 5000 UNIT VIAL ONE (11:09)
[2018-10-04] MEDS ORDERED: POLYMYXIN/BACITRACIN 1L IRRIG ONE (11:10)
[2018-10-04] MEDS ORDERED: hydrALAzine 20 MG INJ ONE (11:54)
[2018-10-04] MEDS ORDERED: LABETALOL HCL 20MG INJ ONE (11:54)
[2018-10-04] MEDS ORDERED: KETOROLAC 30 MG INJ ONE (12:04)
[2018-10-04] MEDS ORDERED: METOCLOPRAMIDE 10 MG INJ ONE (12:04)
[2018-10-04] MEDS ORDERED: DEXAMETHASONE 4 MG/ML 5 ML INJ ONE (12:04)
[2018-10-04] MEDS ORDERED: ONDANSETRON 4 MG INJ ONE (12:04)
[2018-10-04] MEDS ORDERED: SUGAMMADEX SODIUM 200 MG/2 ML VIAL IV ONE (12:46)
[2018-10-04] MEDS ORDERED: KETOROLAC 15 MG INJ IV PRN (13:00)
[2018-10-04] MEDS ORDERED: NACL 0.9% 3 ML SYG IV SCH (13:00)
[2018-10-04] MEDS ORDERED: ZOLPIDEM 5 MG TAB PO PRN (13:00)
[2018-10-04] MEDS ORDERED: oxyCODONE 5 MG TAB PO PRN ×2 (13:00)
[2018-10-04] MEDS ORDERED: VANCOMYCIN 500 MG (PMX) 100 ML IVPB SCH (13:00)
[2018-10-04] MEDS ORDERED: MAGNESIUM HYDROXIDE 30ML CUP PO PRN (13:00)
[2018-10-04] MEDS ORDERED: HYDROmorphONE 1 MG/ML SYG IV PRN (13:00)
[2018-10-04] MEDS ORDERED: LOPERAMIDE 2 MG CAP PO PRN (13:00)
--- NOTE | 2018-10-04 13:26 | PAC ---
Date/Time of Note Date/Time of Note DATE: 10/04/18 TIME: 13:26 Post-Anesthesia Notes Post-Anesthesia Note Last documented vital signs Vital Signs Date Temp Pulse Resp B/P (MAP) Pulse Ox O2 O2 Flow FiO2 Time Delivery Rate 10/04/18 97.4 53 16 159/80 100 Room Air 13:37 (106) Activity: WNL Respiratory function: WNL Cardiovascular function: WNL Mental status: Baseline Pain reasonably controlled: Yes Hydration appropriate: Yes Nausea/Vomiting absent: Yes MARIBELL MORENO MD Oct 04, 2018 13:26
[2018-10-04] MEDS: ACETAMINOPHEN 500 MG TAB PO SCH ×2 (18:00→23:56)
[2018-10-04] MEDS: VANCOMYCIN 500 MG (PMX) 100 ML IVPB SCH (18:03)
[2018-10-04] MEDS: DEXAMETHASONE 2 MG TAB PO SCH ×2 (18:19→23:52)
[2018-10-04] MEDS: oxyCODONE 5 MG TAB PO PRN ×2 (18:20→22:30)
[2018-10-04] MEDS ORDERED: GABAPENTIN 300 MG CAP PO SCH (21:00)
[2018-10-04] MEDS: SENNA/DOCUSATE NA (8.6MG/50MG) TAB PO SCH (21:49)
[2018-10-05] MEDS: oxyCODONE 5 MG TAB PO PRN ×3 (02:43→10:45)
[2018-10-05] MEDS: DEXAMETHASONE 2 MG TAB PO SCH (05:56)
[2018-10-05] MEDS: ACETAMINOPHEN 500 MG TAB PO SCH (06:00)
--- NOTE | 2018-10-05 06:13 | PDOCDIS ---
Discharge Instructions DIAGNOSIS Discharge Diagnosis Rotator cuff tear arthropathy CONDITION [id number] Patient Condition: [id number] Good HOME CARE INSTRUCTIONS: [id number] Diet Instructions: [id number] Regular ACTIVITY: [id number] Activity Restrictions: [id number] Rest between Activity Keep Limb Elevated [id number] Bathing Restrictions: [id number] Shower FOLLOW UP/APPOINTMENTS Follow-up Plan 2 weeks in the office SCHOOL/WORK RELEASE May return to School/Work with: With Restrictions School/Work Release Comment: 5 pound tabletop usage for 6 weeks ESTEFANIA MABRY MD Oct 05, 2018 06:13
--- NOTE | 2018-10-05 06:13 | PN ---
Date/Time of Note Date/Time of Note DATE: 10/05/18 TIME: 06:12 Subjective Awake and alert this morning comfortable. Objective Vitals Vital Signs Date Temp Pulse Resp B/P (MAP) Pulse Ox O2 O2 Flow FiO2 Time Delivery Rate 10/04/18 98.8 88 18 133/70 96 23:54 (91) 10/04/18 Room Air 19:30 10/04/18 2.0 16:40 Intake and Output 10/04/18 10/04/18 10/05/18 1515:00 23:00 07:00 IntakeIntake Total 1100 ml 2180 ml 540 ml OutputOutput Total 100 ml BalanceBalance 1000 ml 2180 ml 540 ml Wound is clean and dry. Neurologically intact. No signs of DVT. Medications Medications Current Medications Lactated Ringer's 1,000 ml @ 30 mls/hr Q24H IV Last administered on 10/04/18 18:02; Admin Dose 30 MLS/HR; Start 10/04/18 at 10:00 Senna/Docusate Sodium (Senokot-S) 1 tab BID PO Last administered on 10/04/18at 21:49; Admin Dose 1 TAB; Start 10/04/18 at 21:00 Simethicone (Mylicon) 80 mg TID PRN PO .GAS; Start 10/04/18 at 13:00 Magnesium Hydroxide (Milk Of Mag) 30 ml BID PRN PO .CONSTIPATION; Start 10/04/18 at 13:00 Loperamide HCl (Imodium Cap) 2 mg Q6H PRN PO .DIARRHEA; Start 10/04/18 at 13:00 Dexamethasone (Decadron) 2 mg Q6 PO Last administered on 10/05/18at 05:56; Admin Dose 2 MG; Start 10/04/18 at 18:00; Stop 10/05/18 at 12:01 Gabapentin (Neurontin) 300 mg HS PO Last administered on 10/04/18at 21:49; Admin Dose 300 MG; Start 10/04/18 at 21:00 Acetaminophen (Tylenol Tab) 500 mg Q6 PO ; Start 10/04/18 at 18:00 Oxycodone HCl (Roxicodone) 15 mg Q4H PRN PO .PAIN; Start 10/04/18 at 13:00 Oxycodone HCl (Roxicodone) 10 mg Q4H PRN PO .PAIN Last administered on 10/05/18 02:43; Admin Dose 10 MG; Start 10/04/18 at 13:00 Oxycodone HCl (Roxicodone) 5 mg Q4H PRN PO .PAIN; Start 10/04/18 at 13:00 Hydromorphone HCl (Dilaudid) 1 mg Q4H PRN IV .BREAKTHROUGH PAIN; Start 10/04/18 at 13:00 Ketorolac Tromethamine (Toradol) 15 mg Q6H PRN IV .PAIN Last administered on 10/04/18 15:37; Admin Dose 15 MG; Start 10/04/18 at 13:00 Ondansetron HCl (Zofran Inj) 4 mg Q6H PRN IV NAUSEA/VOMITING Last administered on 10/04/18 19:29; Admin Dose 4 MG; Start 10/04/18 at 13:00 Diphenhydramine HCl (Benadryl) 25 mg Q6H PRN IV .PRURITUS Last administered on 10/05/18 02:47; Admin Dose 25 MG; Start 10/04/18 at 13:00 Zolpidem Tartrate (Ambien) 10 mg HS PRN PO .INSOMNIA; Start 10/04/18 at 13:00 IV Flush (NS 3 ml) 3 ml per protocol IV ; Start 10/04/18 at 13:00 Vancomycin HCl 100 ml @ 100 mls/hr Q12H IVPB Last administered on 10/04/18 18:03; Admin Dose 100 MLS/HR; Start 10/04/18 at 18:00; Stop 10/05/18 at 06:59 VTE Prophylaxis Risk score (from Nsg)>0 risk: 3 SCD applied (from Nsg): Yes Lines/Catheters IV Catheter Type: Saline Lock Perkins in Place: No Assessment/Plan Assessment/Plan Assessment: Status post reverse total shoulder Plan: Begin OT this morning discharge after ESTEFANIA MABRY MD Oct 05, 2018 06:13
--- NOTE | 2018-10-05 06:14 | DS ---
Date/Time of Note Date/Time of Note DATE: 10/05/18 TIME: 06:13 Discharge Summary Admission/Discharge Info Admit Date/Time Oct 04, 2018 at 08:03 Discharge Date/Time October 05 Discharge Diagnosis Rotator cuff tear arthropathy Patient Condition: Good Hospital Course Patient was admitted and underwent uncomplicated procedure. Postop day 1 she wa s discharged to be followed up in the office in 2 weeks Home Meds Discontinued Reported Medications Amlodipine Besylate* (Amlodipine Besylate*) 10 Mg Tablet, 10 MG PO DAILY, #30 TAB 11/03/16 Thyroid* ([place] Thyroid*) 60 Mg Tablet, 60 MG PO DAILY, TAB 11/03/16 Rosuvastatin Calcium* (Crestor*) 20 Mg Tablet, 20 MG PO QHS, #30 TAB 11/03/16 Follow-up Plan 2 weeks in the office Primary Care Provider Not On Staff Doctor ESTEFANIA MABRY MD Oct 05, 2018 06:14
[2018-10-05] MEDS: VANCOMYCIN 500 MG (PMX) 100 ML IVPB SCH (06:44)
[2018-10-05 07:33] VITALS: BP 146/65; PULSE 56; RESP 17
[2018-10-05] MEDS: SENNA/DOCUSATE NA (8.6MG/50MG) TAB PO SCH (08:52)
== END 2018-10-05 11:45 | disposition home or self-care (01) | DRG 483 ==
LOC: REC 08:03 → MS1 14:37
PROVIDERS: ADMIT Orthopaedic Surgery; ATTEND Orthopaedic Surgery
PROC: 0RRJ00Z Replacement of Right Shoulder Joint with Reverse Ball and Socket Synthetic Substitute, Open Approach (ICD-10-PCS; principal; 2018-10-04 10:30)
DX: M19.011 Primary osteoarthritis, right shoulder (principal); M75.101 Unspecified rotator cuff tear or rupture of right shoulder, not specified as traumatic; I25.10 Atherosclerotic heart disease of native coronary artery without angina pectoris; I10 Essential (primary) hypertension; M32.9 Systemic lupus erythematosus, unspecified; E03.9 Hypothyroidism, unspecified; F32.9 Major depressive disorder, single episode, unspecified; M81.0 Age-related osteoporosis without current pathological fracture; E78.5 Hyperlipidemia, unspecified; Z95.1 Presence of aortocoronary bypass graft
CPT/HCPCS: 86999; 88304; 88311; 97162; C1776; J0171; J0360; J0735; J1100; J1170; J1200; J1885; J2250; J2274; J2405; J2765; J2795; J3010; J3370; J7120